=== PATIENT | male | born 1990 | race Caucasian/White ===

== ENCOUNTER 2018-02-11 08:57 | Emergency (ER) | payer SELFPAY ==
[2018-02-11 09:02] VITALS: BP 144/88
[2018-02-11] MEDS ORDERED: KETOROLAC 30 MG/1 ML ONE (09:18)
[2018-02-11] MEDS ORDERED: KETOROLAC 30 MG/1 ML IM ONE (09:30)
== END 2018-02-11 10:05 | disposition home or self-care (01) ==
LOC: ED 10:03
DX: S40.011A Contusion of right shoulder, initial encounter (principal); F17.200 Nicotine dependence, unspecified, uncomplicated; V49.49XA Driver injured in collision with other motor vehicles in traffic accident, initial encounter; Y93.89 Activity, other specified; Y92.89 Other specified places as the place of occurrence of the external cause; Y99.8 Other external cause status
CPT/HCPCS: 73030; 96372; 99284; J1885